=== PATIENT | male | born 1945 | race Caucasian/White ===

== ENCOUNTER 2020-11-28 09:00 | Outpatient (RCR) | payer MEDICARE, BC ==
[~2020-11-28 09:00] MED LIST: ALLOPURINOL100 MG PO; CENTRUM SILVER1 TA1 PO; FISH OIL CONC1000 MG PO; HCTZ; LIPITOR20 MG PO; MICARDIS80 MG PO; PERCOCET 325 MG1 TA2 PO
== END 2020-12-27 08:51 | disposition home or self-care (01) ==
LOC: WSPT 09:00
DX: M54.5 Low back pain (principal)

== ENCOUNTER 2022-12-27 15:51 | Emergency (ER) | payer MEDICARE, BC ==
[~2022-12-27] VITALS: Ht 177.8 cm; Wt 68.2 kg
[2022-12-27] MEDS ORDERED: LEXAPRO 10MG10 MG PO (16:03)
[2022-12-27] MEDS ORDERED: ARICEPT10 MG PO (16:04)
[2022-12-27] MEDS ORDERED: COZAAR100 MG PO (16:04)
[2022-12-27] MEDS ORDERED: SYNTHROID 0.0.025 MG PO (16:04)
[2022-12-27] MEDS ORDERED: ZYLOPRIM 100MG100 MG PO (16:04)
[2022-12-27] MEDS ORDERED: ZYBAN150 M1 (16:05)
[2022-12-27] MEDS ORDERED: ASPIRIN 81M81 MG/TA2 PO (16:05)
[2022-12-27] MEDS ORDERED: VITAMIN D31000 I1 PO (16:06)
[2022-12-27] MEDS ORDERED: ZOFRAN ODT4 MG PO (16:27)
[2022-12-27 16:46] LABS: BASO # 0.1 K/mm3 (0.0-0.2); EOS # 0.2 K/mm3 (0.0-0.7); EOS % 1.9 % (0.0-4.0); GRAN # 7.1 K/mm3 (1.4-6.5); GRAN % 65.3 % (42.2-75.2); HEMATOCRIT 37.5 % (42.0-52.0); HEMOGLOBIN 12.9 g/dl (13.5-18.0); LYMPH # 2.2 K/mm3 (1.2-3.4); LYMPH % 20.6 % (20.0-51.0); MEAN CELL VOLUME 95 fl (80.0-100.0); MEAN CORPUSCULAR HEMOGLOBIN 33 pg (27-31); MEAN CORPUSCULAR HGB CONC 34 g/dl (33.0-37.0); MEAN PLATELET VOLUME 8.8 fl (7.4-10.4); MONO # 1.2 K/mm3 (0.1-0.6); MONO % 10.8 % (1.7-9.3); PLATELET COUNT 325 K/mm3 (130-400); RED BLOOD COUNT 3.96 M/mm3 (4.20-5.60)
[2022-12-27 16:53] LABS: URINE APPEARANCE Clear (CLEAR/HAZY); URINE COLOR Yellow (YELLOW)
[2022-12-27 16:54] LABS: URINE BLOOD TRACE-INTACT (NEGATIVE); URINE GLUCOSE Negative (NEGATIVE); URINE KETONE 1+ (NEGATIVE); URINE NITRATE Negative (NEGATIVE); URINE PROTEIN(semi-quant) TRACE (NEGATIVE); URINE UROBILINOGEN 0.2 E.U/dL (0.2-1.0)
[2022-12-27 17:01] LABS: MUCOUS Present (NOT PRESENT); SQUAMOUS EPITHELIAL 0-2 /hpf (0-10); URINE BACTERIA None Seen /hpf (NONE SEEN)
[2022-12-27 17:05] LABS: COLLECTION METHOD CLEAN CATCH
[2022-12-27 17:05] LABS: ALANINE AMINOTRANSFERASE 36 U/L (0-55); ALBUMIN 3.5 gm/dL (3.4-4.8); ALKALINE PHOSPHATASE 27 U/L (40-150); ANION GAP 13 mmol/L (7-16); AST,SGOT 27 U/L (5-34); BLOOD UREA NITROGEN 19 mg/dL (8-26); CALCIUM 9.3 mg/dL (8.4-10.2); CARBON DIOXIDE 22 mmol/L (23-31); CHLORIDE 101 mmol/L (98-107); CREATININE, serum 0.92 mg/dL (0.72-1.25); GLUCOSE 108 mg/dL (70-99); LIPASE 31 U/L (8-78); MAGNESIUM 1.5 mg/dL (1.6-2.6); PHOSPHOROUS 2.6 mg/dL (2.3-4.7); POTASSIUM 3.3 mmol/L (3.5-4.5); SODIUM 136 mmol/L (136-145); TOTAL PROTEIN 6.9 gm/dL (6.2-8.1)
[2022-12-27 17:12] LABS: TROPONIN-I < 0.010 ng/mL (0.00-0.033)
[2022-12-27 17:49] VITALS: BP 124/73; PULSE 77; TEMP 98
== END 2022-12-27 17:56 | disposition home or self-care (01) ==
LOC: COL.ER 15:51
PROVIDERS: Emergency Medicine
DX: R11.2 Nausea with vomiting, unspecified (principal); R19.7 Diarrhea, unspecified; R53.1 Weakness; E86.0 Dehydration; Z20.822 Contact with and (suspected) exposure to COVID-19
CPT/HCPCS: J2405; J7030

== ENCOUNTER 2022-12-29 09:45 | Outpatient (RCR) | payer MEDICARE, BC ==
[~2022-12-29 09:45] MED LIST changes: +ARICEPT10 MG PO; +ASPIRIN 81M81 MG/TA2 PO; +COZAAR100 MG PO; +LEXAPRO 10MG10 MG PO; +SYNTHROID 0.0.025 MG PO; +VITAMIN D31000 I1 PO; +ZOFRAN ODT4 MG PO; +ZYBAN150 M1; +ZYLOPRIM 100MG100 MG PO
== END 2023-01-01 | disposition home or self-care (01) ==
LOC: MKS.ESL.PT
DX: R26.89 Other abnormalities of gait and mobility (principal)

== ENCOUNTER 2023-01-26 09:45 | Outpatient (RCR) | payer MEDICARE, BC | END 2023-01-31 | disposition home or self-care (01) | LOC: MKS.ESL.PT | DX: R26.89 Other abnormalities of gait and mobility (principal) ==

== ENCOUNTER 2023-07-01 10:15 | Outpatient (RCR) | payer MEDICARE, BC | END 2023-07-03 | disposition home or self-care (01) | LOC: MKS.ESL.PT | DX: R26.89 Other abnormalities of gait and mobility (principal) ==

== ENCOUNTER 2023-09-30 09:45 | Outpatient (RCR) | payer MEDICARE, BC | END 2023-10-03 | disposition home or self-care (01) | LOC: WSST | DX: R41.3 Other amnesia (principal); R48.9 Unspecified symbolic dysfunctions ==

== ENCOUNTER 2023-10-07 11:15 | Outpatient (RCR) | payer MEDICARE, BC | END 2023-11-03 | disposition home or self-care (01) | LOC: WSST | DX: R41.3 Other amnesia (principal); R48.9 Unspecified symbolic dysfunctions ==